=== PATIENT | male | born 1995 | race Caucasian/White ===

== ENCOUNTER 2019-05-30 10:26 | Emergency (ER) | payer SELFPAY ==
[~2019-05-30] VITALS: Ht 170.2 cm; Wt 79.8 kg
[2019-05-30 10:29] VITALS: Ht 170.2 cm; Wt 79.8 kg
[2019-05-30 13:44] VITALS: BP 124/66
== END 2019-05-30 13:44 | disposition home or self-care (01) ==
LOC: ED 10:26
DX: J10.1 Influenza due to other identified influenza virus with other respiratory manifestations (principal); R19.7 Diarrhea, unspecified
CPT/HCPCS: 87804; J1100; J1885; J2405; J7030